=== PATIENT | female | born 1995 | race African-American/Black ===

== ENCOUNTER 2019-05-23 19:38 | Inpatient (IN) ==
[2019-05-23] MEDS ORDERED: MEPERIDINE 50 MG/1 ML VIAL IV PRN (19:48)
[2019-05-23] MEDS ORDERED: LACTATED RINGERS 250 ML IV ONE (19:48)
[2019-05-23] MEDS ORDERED: ONDANSETRON 4 MG/2 ML VIAL IV PRN ×2 (19:48→21:27)
[2019-05-23] MEDS ORDERED: miSOPROStoL 200 MCG TABLET ONE (19:56)
[2019-05-23] MEDS ORDERED: OXYTOCIN/LR 20 UNIT/1,000 ML BAG IV ONE ×2 (19:56→21:27)
[2019-05-23] MEDS ORDERED: METHYLERGONOVINE 0.2 MG/1 ML AMP ONE (19:56)
[2019-05-23] MEDS ORDERED: CARBOPROST TROMETHAMINE 250 MCG/ML AMP IM ONE (19:57)
[2019-05-23] MEDS ORDERED: LIDOCAINE 1% 50 ML VIAL ONE (19:57)
[2019-05-23] MEDS ORDERED: OXYTOCIN/LR 20 UNIT/1,000 ML BAG IV SCH (20:00)
[2019-05-23] MEDS ORDERED: LACTATED RINGERS 1,000 ML IV SCH (20:00)
[2019-05-23 20:15] LABS: Basophils % 0.4 % (0.0-0.8); Eosinophils # 0.1 10*3/uL (0.0-0.87); Eosinophils % 0.9 % (0.00-10.9); Hematocrit 38.6 VOL% (35.7-47.0); Hemoglobin 13.3 GM/DL (12.0-16.0); Immature Granulocytes % 1.3 %; Lymphocytes # 1.8 10*3/uL (1.4-4.0); Lymphocytes % 23.3 % (21.3-54.2); Mean Corpuscular HGB Conc 34.5 GM/DL (32-36); Mean Corpuscular Volume 98.5 FL (87-102); Mean Platelet Volume 10.9 FL (9.6-12.0); Monocytes % 9.8 % (1.7-12.7); Neutrophils % 64.3 % (38.7-73.9); Platelet Count 201 T/CUMM (130-400); Red Blood Count 3.92 MC/CUMM (3.8-5.5); Red Cell Distribution Width 13.7 % (9.3-17.3); White Blood Count 7.7 T/CUMM (4-12)
[2019-05-23 20:30] LABS: Apearance,Urine Slightly Hazy (Clear); Bilirubin,Urine Negative (Negative); Blood, Urine Moderate mg/dL (Negative); Glucose,Urine (UA) Negative (Negative); Ketones,Urine 80 mg/dL (Negative); Mucus,Urine Few /LPF (Occasional); Nitrite,Urine Negative (Negative); Protein,Urine Negative; RBC,Urine 23 /HPF (0-4); Squamous Epithelial Cell,Urine Few /HPF (0-10); Urine Color Yellow (Yellow); Urine Specific Gravity 1.023 (1.001-1.035); WBC,Urine 2 /HPF (0-6)
[2019-05-23 20:52] LABS: Albumin 2.7 G/DL (3.4-5.0); Bilirubin,Total 0.4 MG/DL (0.2-1.0); Osmolality,Calculated 273.5 MOS/KG (273-304)
[2019-05-23] MEDS ORDERED: LANOLIN 50% CREAM 0.3 OZ TUBE TOP PRN (21:27)
[2019-05-23] MEDS ORDERED: BISACODYL 10 MG SUPP RECTAL PRN (21:27)
[2019-05-23] MEDS ORDERED: MEASLES/MUMPS/RUBELLA VACCINE 0.5 ML VIAL SUBCUT ONE (21:27)
[2019-05-23] MEDS ORDERED: ACETAMINOPHEN 325 MG TABLET PO PRN (21:27)
[2019-05-23] MEDS ORDERED: WITCH HAZEL PADS 100/JAR TOP PRN (21:27)
[2019-05-23] MEDS ORDERED: oxyCODONE/ACETAMINOPHEN 5-325 MG TABLET PO PRN (21:27)
[2019-05-23] MEDS ORDERED: HYDROCORTISONE 2.5% RECTAL CREAM 30 GM TUBE TOP PRN (21:27)
[2019-05-23] MEDS ORDERED: RHO(D) IMMUNE GLOBULIN 300 MCG SYRINGE IM ONE (21:27)
[2019-05-23] MEDS ORDERED: BENZOCAINE 20%/MENTHOL 0.5% SPRAY 56 GM CAN TOP PRN (21:27)
[2019-05-23] MEDS ORDERED: DIPH/TET/ACEL PERT BOOSTER VACCINE 0.5 ML VIAL IM ONE (21:27)
[2019-05-24] MEDS: IBUPROFEN 800 MG TABLET PO PRN ×2 (00:29→23:13)
[2019-05-24] MEDS: oxyCODONE/ACETAMINOPHEN 5-325 MG TABLET PO PRN ×2 (01:13→23:12)
[2019-05-24 05:53] LABS: Basophils % 0.2 % (0.0-0.8); Eosinophils # 0.1 10*3/uL (0.0-0.87); Eosinophils % 0.7 % (0.00-10.9); Hematocrit 34.3 VOL% (35.7-47.0); Hemoglobin 11.7 GM/DL (12.0-16.0); Immature Granulocytes % 0.7 %; Immature Granulocytes Absolute 0.07 #; Lymphocytes # 1.8 10*3/uL (1.4-4.0); Lymphocytes % 17.9 % (21.3-54.2); Mean Corpuscular HGB Conc 34.1 GM/DL (32-36); Mean Corpuscular Volume 99.7 FL (87-102); Mean Platelet Volume 11.2 FL (9.6-12.0); Monocytes % 7.9 % (1.7-12.7); Neutrophils % 72.6 % (38.7-73.9); Platelet Count 175 T/CUMM (130-400); Red Blood Count 3.44 MC/CUMM (3.8-5.5); Red Cell Distribution Width 13.6 % (9.3-17.3); White Blood Count 9.8 T/CUMM (4-12)
[2019-05-24] MEDS: DOCUSATE SODIUM 100 MG CAPSULE PO SCH ×2 (10:09→21:27)
[2019-05-24] MEDS: FERROUS SULFATE 325 MG TABLET PO SCH ×2 (10:09→21:27)
[2019-05-25 08:53] VITALS: BP 114/70
[2019-05-25] MEDS: DOCUSATE SODIUM 100 MG CAPSULE PO SCH (09:45)
[2019-05-25] MEDS: FERROUS SULFATE 325 MG TABLET PO SCH (09:45)
[2019-05-25] MEDS: IBUPROFEN 800 MG TABLET PO PRN (13:19)
== END 2019-05-25 14:55 | disposition home or self-care (01) | DRG 560 ==
LOC: N.LDOUT 19:38 → N.LD 19:39 → N.OB 23:20
PROVIDERS: ADMIT Obstetrics & Gynecology; ATTEND Nurse Practitioner Women's Health